=== PATIENT | female | born 1995 | race African-American/Black ===

== ENCOUNTER 2016-06-16 16:25 | Inpatient (IN) | payer MEDICAID, SELFPAY ==
[~2016-06-16] VITALS: Ht 170.2 cm; Wt 50.6 kg
[2016-06-16] MEDS ORDERED: SODIUM CHLORIDE 0.9% 1,000 ML IV ONE (16:50)
[2016-06-16] MEDS ORDERED: SODIUM CHLORIDE 0.9% 1,000ML IVBOLUS ONE (17:00)
[2016-06-16] MEDS ORDERED: ONDANSETRON 2MG/ML, 2ML IVPush ONE (17:00)
[2016-06-16] MEDS ORDERED: ACETAMINOPHEN 325 MG TABLET PO ONE (17:00)
[2016-06-16] MEDS ORDERED: ACETAMINOPHEN 325 MG TABLET ONE (17:03)
[2016-06-16] MEDS ORDERED: ONDANSETRON 2MG/ML, 2ML ONE (17:03)
[2016-06-16] MEDS ORDERED: MORPHINE SULFATE 4 MG/ML, 1ML ONE (17:03)
[2016-06-16] MEDS: MORPHINE SULFATE 4 MG/ML, 1ML IVPush PRN ×3 (17:32→22:12)
[2016-06-16 17:39] LABS: HEMOGLOBIN 8.6 g/dL (11.7-16.4)
[2016-06-16 17:46] LABS: ASPARTATE AMINO TRANSFERASE 40 U/L (15-37); BLOOD UREA NITROGEN 6 mg/dL (7-18)
[2016-06-16] MEDS ORDERED: NS + 40MEQ KCL 1,000 ML IV ONE ×2 (17:49→18:32)
[2016-06-16] MEDS ORDERED: MAGNESIUM SULFATE 1 GM in SODIUM CHLORIDE 0.9% 50 ML IV ONE (18:00)
[2016-06-16 18:09] LABS: RAPID INFLUENZA A Negative (Negative); RAPID INFLUENZA B Negative (Negative)
[2016-06-16 18:24] LABS: ANISOCYTOSIS 2+; HYPOCHROMIA 1+
[2016-06-16 18:25] LABS: MICROCYTOSIS 1+; TARGET CELLS 1+
[2016-06-16 18:26] LABS: POLYCHROMASIA 1+
[2016-06-16] MEDS ORDERED: SODIUM CHLORIDE FLUSH 10ML SYR IVF PRN (20:30)
[2016-06-16] MEDS ORDERED: BISACODYL 10 MG SUPP PR PRN (20:30)
[2016-06-16 21:08] LABS: SICKLE CELL SCREEN NEGATIVE (NEGATIVE)
[2016-06-16 22:24] VITALS: BP 137/69
[2016-06-17] VITALS (10 sets, daily range): BP systolic 135–162; BP diastolic 77–91
[2016-06-17] MEDS ORDERED: MAGNESIUM SULFATE PMX 2GM/50ML 50 ML IV ONE ×2 (00:30→17:30)
[2016-06-17] MEDS ORDERED: MAGNESIUM SULFATE 1 GM in SODIUM CHLORIDE 0.9% 50 ML IV ONE (01:00)
[2016-06-17] MEDS: NS + 40MEQ KCL 1,000 ML IV SCH ×3 (01:39→23:30)
[2016-06-17] MEDS: MORPHINE SULFATE 4 MG/ML, 1ML IVPush PRN ×3 (01:54→15:12)
[2016-06-17] MEDS: ACETAMINOPHEN 325 MG TABLET PO PRN ×3 (01:54→20:16)
[2016-06-17 06:54] LABS: ASPARTATE AMINO TRANSFERASE 37 U/L (15-37); BLOOD UREA NITROGEN 4 mg/dL (7-18)
[2016-06-17 07:18] LABS: DIFF TOTAL CELLS COUNTED 100 CELL DIFF; HEMOGLOBIN 7.3 g/dL (11.7-16.4)
[2016-06-17 07:19] LABS: ANISOCYTOSIS 2+; MICROCYTOSIS 2+; VERIFY COUNTS? YES
[2016-06-17 07:20] LABS: HYPOCHROMIA 2+; OVALOCYTES 1+
[2016-06-17 07:21] LABS: POLYCHROMASIA 1+
[2016-06-17] MEDS: ONDANSETRON 2MG/ML, 2ML IVP PRN (10:03)
[2016-06-17] MEDS: KETOROLAC 30 MG/1 ML IVPush SCH ×3 (11:12→20:16)
[2016-06-17] MEDS: ASCORBIC ACID 500 MG TABLET PO SCH (11:12)
[2016-06-17] MEDS: FERROUS SULFATE 325 MG TABLET PO SCH ×2 (11:13→17:06)
[2016-06-17] MEDS: METHOCARBAMOL 500 MG TABLET PO SCH ×3 (11:13→20:16)
[2016-06-17] MEDS: POTASSIUM CHLORIDE 20 MEQ TAB.ER.PRT PO SCH (17:06)
[2016-06-18 01:44] VITALS: BP 164/105
[2016-06-18] MEDS: MORPHINE SULFATE 4 MG/ML, 1ML IVPush PRN ×5 (01:55→22:43)
[2016-06-18 01:57] VITALS: BP 156/90
[2016-06-18 06:03] LABS: ASPARTATE AMINO TRANSFERASE 55 U/L (15-37); BLOOD UREA NITROGEN 4 mg/dL (7-18)
[2016-06-18 07:41] LABS: HEMOGLOBIN 9.8 g/dL (11.7-16.4)
[2016-06-18] MEDS: ASCORBIC ACID 500 MG TABLET PO SCH (07:51)
[2016-06-18] MEDS: KETOROLAC 30 MG/1 ML IVPush SCH ×2 (07:51→16:36)
[2016-06-18] MEDS: FERROUS SULFATE 325 MG TABLET PO SCH (07:52)
[2016-06-18] MEDS: METHOCARBAMOL 500 MG TABLET PO SCH ×4 (07:53→22:37)
[2016-06-18] MEDS: NS + 40MEQ KCL 1,000 ML IV SCH ×2 (07:53→18:05)
[2016-06-18] MEDS: POTASSIUM CHLORIDE 20 MEQ TAB.ER.PRT PO SCH ×2 (07:53→17:00)
[2016-06-18 08:22] VITALS: BP 143/68
[2016-06-18 08:25] LABS: ANISOCYTOSIS 3+
[2016-06-18 08:27] LABS: HYPOCHROMIA 2+; MICROCYTOSIS 1+; OVALOCYTES 1+; POIKILOCYTOSIS 2+; SCHISTOCYTES 1+
[2016-06-18] MEDS ORDERED: POTASSIUM PHOSPHATE 22 MEQ in SODIUM CHLORIDE 0.9% 500 ML IV ONE (10:30)
[2016-06-18] MEDS: ACETAMINOPHEN 325 MG TABLET PO PRN ×2 (10:37→16:36)
[2016-06-18] MEDS ORDERED: OMNIPAQUE 350 MG/ML, 100ML BOTTLE ONE (11:53)
[2016-06-18 13:02] VITALS: BP 158/84
[2016-06-18] MEDS: IRON SUCROSE COMPLEX 100MG/5ML IV SCH (13:14)
[2016-06-18] MEDS: ENOXAPARIN 40 MG/0.4 ML SQ SCH (13:15)
[2016-06-18] MEDS: ONDANSETRON 2MG/ML, 2ML IVP PRN ×2 (14:33→19:34)
[2016-06-18 14:48] LABS: HIV 1&2 ANTIBODY SCREEN Nonreactive (Nonreactive); HIV-1 p24 ANTIGEN Nonreactive (Nonreactive)
[2016-06-18 15:57] LABS: SPECIMEN SOURCE CSF (.); STREPTOCOCCUS PNEUMONIAE AG Negative (Negative)
[2016-06-18 19:11] VITALS: BP 173/88
[2016-06-19] MEDS ORDERED: DIPHENHYDRAMINE 50 MG/ML, 1ML IVPush ONE
[2016-06-19] MEDS ORDERED: LABETALOL 5MG/ML, 20ML IVPush ONE
[2016-06-19 01:57] VITALS: BP 160/76
[2016-06-19] MEDS: MORPHINE SULFATE 4 MG/ML, 1ML IVPush PRN ×3 (04:38→21:19)
[2016-06-19] MEDS: ACETAMINOPHEN 325 MG TABLET PO PRN ×2 (04:46→21:17)
[2016-06-19] MEDS: NS + 40MEQ KCL 1,000 ML IV SCH (05:19)
[2016-06-19 06:02] LABS: HEMOGLOBIN 9.8 g/dL (11.7-16.4)
[2016-06-19 06:14] LABS: BLOOD UREA NITROGEN 6 mg/dL (7-18)
[2016-06-19 06:19] LABS: ASPARTATE AMINO TRANSFERASE 36 U/L (15-37)
[2016-06-19 06:25] LABS: DIFF TOTAL CELLS COUNTED 100 CELL DIFF
[2016-06-19 06:27] LABS: ANISOCYTOSIS 3+; VERIFY COUNTS? YES
[2016-06-19 06:28] LABS: HYPOCHROMIA 2+; MICROCYTOSIS 1+; OVALOCYTES 1+; POIKILOCYTOSIS 2+; POLYCHROMASIA 1+; SCHISTOCYTES 1+; TARGET CELLS 1+
[2016-06-19 08:27] VITALS: BP 165/92
[2016-06-19] MEDS: METHOCARBAMOL 500 MG TABLET PO SCH ×4 (08:38→21:17)
[2016-06-19] MEDS: ASCORBIC ACID 500 MG TABLET PO SCH (08:39)
[2016-06-19] MEDS: IRON SUCROSE COMPLEX 100MG/5ML IV SCH (08:39)
[2016-06-19] MEDS: POTASSIUM CHLORIDE 20 MEQ TAB.ER.PRT PO SCH ×2 (08:39→16:30)
[2016-06-19] MEDS ORDERED: ENALAPRILAT 1.25 MG/ML, 2ML IV PRN (11:00)
[2016-06-19 11:22] LABS: OCCBLD OBC PASS
[2016-06-19] MEDS: ENOXAPARIN 40 MG/0.4 ML SQ SCH (11:59)
[2016-06-19 13:47] VITALS: BP 141/89
[2016-06-19 20:00] VITALS: BP 134/75
[2016-06-20 01:54] VITALS: BP 139/86
[2016-06-20] MEDS: MORPHINE SULFATE 4 MG/ML, 1ML IVPush PRN ×3 (01:54→23:21)
[2016-06-20] MEDS: ONDANSETRON 2MG/ML, 2ML IVP PRN (01:54)
[2016-06-20 05:37] LABS: BLOOD UREA NITROGEN 9 mg/dL (7-18)
[2016-06-20 05:42] LABS: ASPARTATE AMINO TRANSFERASE 46 U/L (15-37)
[2016-06-20] MEDS: METHOCARBAMOL 500 MG TABLET PO SCH ×4 (06:00→21:36)
[2016-06-20 06:05] LABS: HEMOGLOBIN 10.9 g/dL (11.7-16.4)
[2016-06-20 06:06] LABS: DIFF TOTAL CELLS COUNTED 100 CELL DIFF
[2016-06-20 06:12] LABS: ANISOCYTOSIS 3+; MICROCYTOSIS 2+; VERIFY COUNTS? YES
[2016-06-20 06:13] LABS: HYPOCHROMIA 2+; OVALOCYTES 1+; POLYCHROMASIA 1+
[2016-06-20 06:14] LABS: SCHISTOCYTES 1+; TARGET CELLS 1+
[2016-06-20 06:16] LABS: LARGE PLATELETS 1+
[2016-06-20 07:57] VITALS: BP 130/83
[2016-06-20] MEDS: ASCORBIC ACID 500 MG TABLET PO SCH (09:14)
[2016-06-20] MEDS: POTASSIUM CHLORIDE 20 MEQ TAB.ER.PRT PO SCH (09:14)
[2016-06-20] MEDS: IRON SUCROSE COMPLEX 100MG/5ML IV SCH (09:14)
[2016-06-20 10:32] LABS: HEPATITIS C VIRUS ANTIBODY Nonreactive (Nonreactive)
[2016-06-20 11:06] LABS: BETA STREP (GROUP B) AG Negative (Negative); HAEMOPHILUS INFLUENZAE B AG Negative (Negative); NEISSERIA MENINGITIDIS AG Negative (Negative)
[2016-06-20] MEDS: ENOXAPARIN 40 MG/0.4 ML SQ SCH (11:41)
[2016-06-20 12:47] VITALS: BP 129/78
[2016-06-20 18:39] VITALS: BP 120/68
[2016-06-21 02:00] VITALS: BP 130/78
[2016-06-21] MEDS: METHOCARBAMOL 500 MG TABLET PO SCH ×2 (05:17→11:26)
[2016-06-21 06:42] LABS: HEMOGLOBIN 11.7 g/dL (11.7-16.4)
[2016-06-21 06:54] LABS: DIFF TOTAL CELLS COUNTED 100 CELL DIFF
[2016-06-21 06:56] LABS: BLOOD UREA NITROGEN 13 mg/dL (7-18)
[2016-06-21 07:05] LABS: VERIFY COUNTS? YES
[2016-06-21 07:06] LABS: ANISOCYTOSIS 3+; HYPOCHROMIA 2+; MICROCYTOSIS 2+; OVALOCYTES 1+; POLYCHROMASIA 1+; SCHISTOCYTES 1+; TARGET CELLS 1+
[2016-06-21 07:07] LABS: LARGE PLATELETS 1+
[2016-06-21 07:44] VITALS: BP 132/74
[2016-06-21] MEDS: ENOXAPARIN 40 MG/0.4 ML SQ SCH (11:00)
[2016-06-21] MEDS: IRON SUCROSE COMPLEX 100MG/5ML IV SCH (11:25)
[2016-06-21] MEDS: ASCORBIC ACID 500 MG TABLET PO SCH (11:25)
[2016-06-21] MEDS ORDERED: METH10TA6 PO (11:28)
[2016-06-22 20:06] LABS: ADENOVIRUS PCR Negative (Negative); INFLUENZA A PCR Negative (Negative); INFLUENZA B PCR Negative (Negative); METAPNEUMOVIRUS PCR Negative (Negative); PARAINFLUENZA 1 PCR Negative (Negative); PARAINFLUENZA 2 PCR Negative (Negative); PARAINFLUENZA 3 PCR Negative (Negative); RESP SYNCYTIAL VIRUS A PCR Negative (Negative); RESP SYNCYTIAL VIRUS B PCR Negative (Negative); RHINOVIRUS PCR Negative (Negative)
[2016-06-23 09:07] LABS: THYROGLOBULIN AB 0.9 IU/mL (0.0-0.9)
== END 2016-06-21 12:45 | disposition home or self-care (01) | DRG 644 ==
LOC: ED 17:15 → EDIP 20:04 → 4EST 21:32 → 4WST 06-18 12:14
PROC: 009U3ZX Drainage of Spinal Canal, Percutaneous Approach, Diagnostic (ICD-10-PCS; principal; 2016-06-16)
PROC: 0T9B70Z Drainage of Bladder with Drainage Device, Via Natural or Artificial Opening (ICD-10-PCS; 2016-06-16)
DX: E05.90 Thyrotoxicosis, unspecified without thyrotoxic crisis or storm (principal); R65.10 Systemic inflammatory response syndrome (SIRS) of non-infectious origin without acute organ dysfunction; E44.0 Moderate protein-calorie malnutrition; Z68.1 Body mass index [BMI] 19.9 or less, adult; B25.9 Cytomegaloviral disease, unspecified; B34.9 Viral infection, unspecified; D50.9 Iron deficiency anemia, unspecified; E87.5 Hyperkalemia; M54.2 Cervicalgia; E87.6 Hypokalemia; Z82.49 Family history of ischemic heart disease and other diseases of the circulatory system; Z83.3 Family history of diabetes mellitus; I10 Essential (primary) hypertension; I27.2 Other secondary pulmonary hypertension; B97.6 Parvovirus as the cause of diseases classified elsewhere; B00.9 Herpesviral infection, unspecified; A53.9 Syphilis, unspecified; M32.9 Systemic lupus erythematosus, unspecified; R19.7 Diarrhea, unspecified; R00.0 Tachycardia, unspecified
CPT/HCPCS: 36415; 62270; 71010; 71275; 74020; 76536; 76700; 80048; 80053; 80074; 80076; 81003; 82040; 82272; 82550; 82728; 82945; 83010; 83520; 83540; 83550; 83605; 83615; 83735; 84100; 84145; 84157; 84439; 84443; 84703; 85025; 85045; 85651; 85660; 86038; 86140; 86308; 86376; 86592; 86645; 86663; 86664; 86665; 86703; 86747; 86800; 86850; 86900; 86923; 87040; 87046; 87070; 87205; 87252; 87328; 87329; 87400; 87497; 87529; 87532; 87633; 87798; 87802; 87899; 89051; 93005; 93306; 93308; 96361; 96365; 96366; 96368; 96375; J1650; J1756; J1885; J2405; J3475; Q9967; G0435; J1200; J3480; J7030; J7040; P9016

== ENCOUNTER → 2018-09-01 | Outpatient (CLI) | payer OTHER ==
[~2018-09-01] MED LIST: METH10TA6 PO
[2018-09-01 17:37] LABS: FREE T4 (FREE THYROXINE) 1.07 ng/dL (0.76-1.46)
== END | disposition home or self-care (01) ==
LOC: LAB 16:49
PROVIDERS: ATTEND Internal Medicine Endocrinology, Diabetes & Metabolism
DX: E89.0 Postprocedural hypothyroidism (principal)
CPT/HCPCS: 36415; 84439; 84443

== ENCOUNTER 2019-04-11 10:18 | Outpatient (CLI) | payer OTHER ==
[2019-04-11 10:34] LABS: BASOPHILS # (AUTO) 0.03 x10^3/uL (0-0.1); BASOPHILS % (AUTO) 1 % (0-1); EOSINOPHILS % (AUTO) 6 % (1-7); LYMPHOCYTES # (AUTO) 1.88 x10^3/uL (1-3.4); LYMPHOCYTES % (AUTO) 35 % (22-44); MD NO; MEAN CORPUSCULAR HEMOGLOBIN 27.7 pg (27.0-34.8); MEAN CORPUSCULAR HGB CONC 32.9 g/dL (32.4-35.8); MEAN CORPUSCULAR VOLUME 84.2 fL (80-100); MEAN PLATELET VOLUME 7.7 fL (7.4-10.4); MONOCYTES # (AUTO) 0.26 x10^3/uL (0.2-0.8); MONOCYTES % (AUTO) 5 % (2-9); NEUTROPHILS # (AUTO) 2.97 x10^3/uL (1.8-6.8); NEUTROPHILS % (AUTO) 55 % (42-75); PLATELET COUNT 324 x10^3/uL (130-400); RED BLOOD COUNT 4.89 x10^6/uL (3.82-5.3); RED CELL DISTRIBUTION WIDTH 13.9 % (9.6-15.2)
== END 2019-04-11 23:59 | disposition home or self-care (01) ==
LOC: LAB 10:18
PROVIDERS: ATTEND Family Medicine
DX: D64.9 Anemia, unspecified (principal); E89.0 Postprocedural hypothyroidism
CPT/HCPCS: 36415; 84443; 85025

== ENCOUNTER 2020-02-01 18:48 | Emergency (ER) | payer OTHER ==
[~2020-02-01] VITALS: Ht 170.2 cm; Wt 66.9 kg
[2020-02-01 19:07] VITALS: BP 137/83
[2020-02-01 19:30] LABS: BASOPHILS % (AUTO) 1 % (0-1); EOSINOPHILS % (AUTO) 4 % (1-7); LYMPHOCYTES % (AUTO) 35 % (22-44); MEAN CORPUSCULAR HEMOGLOBIN 27.4 pg (27.0-34.8); MEAN CORPUSCULAR HGB CONC 33.3 g/dL (32.4-35.8); MEAN PLATELET VOLUME 7.2 fL (7.4-10.4); MONOCYTES % (AUTO) 5 % (2-9); NEUTROPHILS % (AUTO) 56 % (42-75); PLATELET COUNT 302 x10^3/uL (130-400); RED BLOOD COUNT 4.85 x10^6/uL (3.82-5.3); RED CELL DISTRIBUTION WIDTH 13.8 % (9.6-15.2)
[2020-02-01 19:38] LABS: ANION GAP 7 mmol/L (5-15); CALCIUM 8.7 mg/dL (8.5-10.1); CHLORIDE 109 mmol/L (98-107)
[2020-02-01 19:43] LABS: MD NO
[2020-02-01 20:02] LABS: MICROSCOPIC NOT IND
--- NOTE | 2020-02-01 21:35 | NUR ---
FIRST CONTACT, ABRAHAM. PT ALREADY PROVIDED URINE, LABS WERE DRAWN ALREADY. CONNECTED TO CONT PULSE OX, UNDRESS. AWAITING ERP EVAL. CALL MAGALY AIDET PROVIDED.
[2020-02-01] MEDS ORDERED: ONDANSETRON ODT 4 MG ONE (23:06)
[2020-02-01] MEDS ORDERED: ONDANSETRON ODT 4 MG PO ONE (23:30)
== END 2020-02-02 01:16 | disposition home or self-care (01) ==
LOC: ED 23:54
DX: O21.0 Mild hyperemesis gravidarum (principal); E87.6 Hypokalemia; R10.2 Pelvic and perineal pain; Z3A.10 10 weeks gestation of pregnancy
CPT/HCPCS: 36415; 76801; 80048; 81003; 84702; 85025; 86901; 99284; Q0162

== ENCOUNTER → 2020-02-27 | Outpatient (CLI) | payer OTHER ==
[2020-02-27 09:54] LABS: BASOPHILS % (AUTO) 1 % (0-1); EOSINOPHILS % (AUTO) 3 % (1-7); LYMPHOCYTES % (AUTO) 31 % (22-44); MEAN CORPUSCULAR HEMOGLOBIN 27.5 pg (27.0-34.8); MEAN CORPUSCULAR HGB CONC 33.6 g/dL (32.4-35.8); MONOCYTES % (AUTO) 5 % (2-9); NEUTROPHILS % (AUTO) 62 % (42-75); PLATELET COUNT 267 x10^3/uL (130-400); RED BLOOD COUNT 4.68 x10^6/uL (3.82-5.3); RED CELL DISTRIBUTION WIDTH 14.1 % (9.6-15.2)
[2020-02-27 09:56] LABS: MD NO
[2020-02-27 10:15] LABS: FREE T4 (FREE THYROXINE) 1.27 ng/dL (0.76-1.46)
== END | disposition home or self-care (01) ==
LOC: LAB 09:34
PROVIDERS: ATTEND Obstetrics & Gynecology
DX: Z34.80 Encounter for supervision of other normal pregnancy, unspecified trimester (principal)
CPT/HCPCS: 36415; 84439; 84443; 85025; 86592; 86762; 86850; 86870; 86886; 86900; 86902; 87086; 87340; 87806; G0475

== ENCOUNTER 2020-02-29 07:36 | Emergency (ER) | payer OTHER ==
[~2020-02-29] VITALS: Ht 170.2 cm; Wt 67.2 kg
[2020-02-29] MEDS ORDERED: PREN1TAB28 PO (07:54)
[2020-02-29] MEDS ORDERED: CHOL10003 PO (07:54)
[2020-02-29] MEDS ORDERED: LEVO50TA PO (07:55)
[2020-02-29] MEDS ORDERED: MORPHINE SULFATE 4 MG/ML, 1ML IVPush PRN (08:00)
[2020-02-29] MEDS ORDERED: SODIUM CHLORIDE FLUSH 10ML SYR IVF ONE (08:00)
[2020-02-29] MEDS ORDERED: SODIUM CHLORIDE 0.9% 1,000ML IVBOLUS ONE (08:00)
[2020-02-29] MEDS ORDERED: ONDANSETRON 2MG/ML, 2ML IVPush ONE (08:00)
[2020-02-29] MEDS ORDERED: ONDANSETRON 2MG/ML, 2ML ONE (08:08)
[2020-02-29] MEDS ORDERED: MORPHINE SULFATE 4 MG/ML, 1ML ONE (08:08)
--- NOTE | 2020-02-29 08:18 | NUR ---
PIV STARTED AND BLOOD DRAWN, INCLUDING TYPE AND SCREEN IN THE PRESENCE OF LAB. IV BOLUS STARTED. PT MEDICATED PER JUN. PT TO ULTRASOUND AT THIS TIME.
[2020-02-29 08:29] LABS: BASOPHILS % (AUTO) 1 % (0-1); EOSINOPHILS % (AUTO) 2 % (1-7); LYMPHOCYTES % (AUTO) 26 % (22-44); MEAN CORPUSCULAR HEMOGLOBIN 27.8 pg (27.0-34.8); MEAN CORPUSCULAR HGB CONC 33.2 g/dL (32.4-35.8); MEAN PLATELET VOLUME 7.4 fL (7.4-10.4); MONOCYTES % (AUTO) 4 % (2-9); NEUTROPHILS % (AUTO) 67 % (42-75); PLATELET COUNT 274 x10^3/uL (130-400); RED BLOOD COUNT 4.76 x10^6/uL (3.82-5.3)
[2020-02-29 08:33] LABS: MD NO
[2020-02-29 08:37] LABS: ALBUMIN 4.2 g/dL (3.4-5.0); ANION GAP 8 mmol/L (5-15); CALCIUM 8.7 mg/dL (8.5-10.1); CHLORIDE 109 mmol/L (98-107)
[2020-02-29 08:55] LABS: ALANINE AMINOTRANSFERASE 17 U/L (12-78); ALKALINE PHOSPHATASE 28 U/L (45-117); BILIRUBIN,TOTAL 0.3 mg/dL (0.2-1.0); CREATININE 0.69 mg/dL (0.55-1.02); TOTAL PROTEIN 8.3 g/dL (6.4-8.2)
--- NOTE | 2020-02-29 09:27 | NUR ---
CONFIRMED WITH DR ROLLINS URINE CAN BE OBRAINED VIA CLEAN CATCH. THIS REPORTED TO PRIMARY RN, IZZY. URINE CUP PROVIDED, PT UP TO BR.
[2020-02-29 09:55] LABS: MICROSCOPIC NOT IND
--- NOTE | 2020-02-29 10:48 | NUR ---
CARE FOR DC ONLY PROVIDED. PT LAYING ON GURNEY, NO ACUTE DISTRESS NOTED. IV DC'D WITH TIP INTACT. PAIN DECREASED TO 4/10. REVIEWED DC INSTRUCTIONS WITH PT, UNDERSTANDING VERBALIZED. PT LEFT AMB, GAIT STEADY.
[2020-02-29 10:49] VITALS: BP 105/67
== END 2020-02-29 10:52 | disposition home or self-care (01) ==
LOC: ED 08:04
DX: O26.891 Other specified pregnancy related conditions, first trimester (principal); R10.31 Right lower quadrant pain; Z3A.10 10 weeks gestation of pregnancy
CPT/HCPCS: 36415; 76801; 80053; 81003; 84702; 85025; 86901; 96361; 96374; 96375; 99284; J2270; J2405; J7030

== ENCOUNTER → 2020-04-08 | Outpatient (CLI) | payer OTHER ==
[~2020-04-08] MED LIST changes: +CHOL10003 PO; +LEVO50TA PO; +PREN1TAB28 PO
== END | disposition home or self-care (01) ==
LOC: CFH 08:28
PROVIDERS: ATTEND Obstetrics & Gynecology
DX: N63.20 Unspecified lump in the left breast, unspecified quadrant (principal)
CPT/HCPCS: 76642

== ENCOUNTER 2020-04-12 14:46 | Outpatient (CLI) | payer OTHER ==
[2020-04-12 15:13] LABS: T4 (THYROXINE) 12.7 mcg/dL (4.8-13.9)
== END 2020-04-12 23:59 | disposition home or self-care (01) ==
LOC: LAB 14:46
PROVIDERS: ATTEND Family Medicine
DX: Z33.1 Pregnant state, incidental (principal); E89.0 Postprocedural hypothyroidism
CPT/HCPCS: 36415; 84436; 84443

== ENCOUNTER → 2020-05-01 | Outpatient (CLI) | payer OTHER | END | disposition home or self-care (01) | LOC: LAB 15:04 | PROVIDERS: ATTEND Family Medicine | DX: Z34.82 Encounter for supervision of other normal pregnancy, second trimester (principal); Z3A.19 19 weeks gestation of pregnancy | CPT/HCPCS: 36415; 82105 ==

== ENCOUNTER 2020-05-17 09:35 | Observation (INO) | payer OTHER ==
[~2020-05-17] VITALS: Ht 170.2 cm; Wt 73.6 kg
[2020-05-17 10:12] VITALS: BP 119/74
[2020-05-17 10:13] LABS: MICROSCOPIC NOT IND
[2020-05-17 10:19] LABS: AMPHETAMINE SCREEN, URINE Negative (Negative); BARBITURATE SCREEN, URINE Negative (Negative); BENZODIAZEPINE SCREEN, URINE Negative (Negative); CANNABINOID SCREEN, URINE Positive (Negative); METHADONE SCREEN, URINE Negative (Negative); OPIATE SCREEN, URINE Negative (Negative)
[2020-05-17 10:20] LABS: COCAINE SCREEN, URINE Negative (Negative)
[2020-05-17] MEDS ORDERED: INDOMETHACIN 50 MG CAPSULE PO ONE (12:00)
[2020-05-17] MEDS ORDERED: INDOMETHACIN 50 MG CAPSULE ONE (12:06)
== END 2020-05-17 13:48 | disposition home or self-care (01) ==
LOC: LDOP 09:35 → ORIP 12:12 → LDIP 12:18
PROVIDERS: ADMIT Obstetrics & Gynecology; ATTEND Obstetrics & Gynecology
DX: O62.9 Abnormality of forces of labor, unspecified (principal); Z20.822 Contact with and (suspected) exposure to COVID-19; O34.12 Maternal care for benign tumor of corpus uteri, second trimester; D25.9 Leiomyoma of uterus, unspecified; O99.282 Endocrine, nutritional and metabolic diseases complicating pregnancy, second trimester; E03.9 Hypothyroidism, unspecified; Z3A.22 22 weeks gestation of pregnancy; Z79.899 Other long term (current) drug therapy
CPT/HCPCS: 76817; 80307; 81003; 87086; 87635; 99211; G0378; G0463

== ENCOUNTER 2020-05-20 09:13 | Outpatient (CLI) | payer OTHER ==
[~2020-05-20] VITALS: Ht 170.2 cm; Wt 71.8 kg
[2020-05-20 09:51] LABS: MICROSCOPIC INDICATED
[2020-05-20 09:52] VITALS: BP 125/72
== END 2020-05-20 11:48 | disposition home or self-care (01) ==
LOC: LDOP 09:13
PROVIDERS: ATTEND Obstetrics & Gynecology
DX: O99.891 Other specified diseases and conditions complicating pregnancy (principal); N13.30 Unspecified hydronephrosis; O26.892 Other specified pregnancy related conditions, second trimester; R10.9 Unspecified abdominal pain; Z3A.22 22 weeks gestation of pregnancy
CPT/HCPCS: 76770; 81001; 87086; 99211; G0463

== ENCOUNTER → 2020-05-22 | Outpatient (CLI) | payer OTHER ==
[2020-05-22 11:08] LABS: FREE T4 (FREE THYROXINE) 1.07 ng/dL (0.76-1.46)
== END | disposition home or self-care (01) ==
LOC: LAB 10:33
PROVIDERS: ATTEND Internal Medicine Endocrinology, Diabetes & Metabolism
DX: E89.0 Postprocedural hypothyroidism (principal)
CPT/HCPCS: 36415; 84439; 84443

== ENCOUNTER 2020-06-15 16:16 | Outpatient (CLI) | payer OTHER ==
[~2020-06-15] VITALS: Ht 170.2 cm; Wt 72.7 kg
[2020-06-15 16:22] VITALS: BP 134/74
[2020-06-15] MEDS ORDERED: BETAMETHASONE 6 MG/ML, 5ML IM ONE ×2 (16:30)
== END 2020-06-15 16:55 | disposition home or self-care (01) ==
LOC: LDOP 16:16
PROVIDERS: ATTEND Obstetrics & Gynecology
DX: O99.282 Endocrine, nutritional and metabolic diseases complicating pregnancy, second trimester (principal); E89.0 Postprocedural hypothyroidism; Z3A.25 25 weeks gestation of pregnancy; Z79.899 Other long term (current) drug therapy
CPT/HCPCS: 96372; 99211; J0702; G0463

== ENCOUNTER → 2020-07-09 | Outpatient (CLI) | payer OTHER ==
[2020-07-09 15:33] LABS: FREE T4 (FREE THYROXINE) 0.97 ng/dL (0.76-1.46)
== END | disposition home or self-care (01) ==
LOC: LAB 14:54
PROVIDERS: ATTEND Internal Medicine Endocrinology, Diabetes & Metabolism
DX: E89.0 Postprocedural hypothyroidism (principal)
CPT/HCPCS: 36415; 84439; 84443

== ENCOUNTER 2020-08-30 10:04 | Inpatient (IN) | payer OTHER ==
[~2020-08-30] VITALS: Ht 170.2 cm; Wt 77.7 kg
[2020-08-30 10:35] LABS: BASOPHILS % (AUTO) 1 % (0-1); EOSINOPHILS % (AUTO) 2 % (1-7); LYMPHOCYTES % (AUTO) 25 % (22-44); MEAN CORPUSCULAR HEMOGLOBIN 28.5 pg (27.0-34.8); MEAN CORPUSCULAR HGB CONC 33.4 g/dL (32.4-35.8); MEAN PLATELET VOLUME 8.1 fL (7.4-10.4); MONOCYTES % (AUTO) 4 % (2-9); NEUTROPHILS % (AUTO) 68 % (42-75); PLATELET COUNT 244 x10^3/uL (130-400); RED BLOOD COUNT 4.63 x10^6/uL (3.82-5.3); RED CELL DISTRIBUTION WIDTH 15.1 % (9.6-15.2)
[2020-08-30 10:36] LABS: MD NO
[2020-08-30 10:43] LABS: ANION GAP 8 mmol/L (5-15); CALCIUM 8.4 mg/dL (8.5-10.1); CHLORIDE 110 mmol/L (98-107)
[2020-08-30 10:47] LABS: ALANINE AMINOTRANSFERASE 10 U/L (12-78); ALKALINE PHOSPHATASE 118 U/L (45-117); BILIRUBIN, DIRECT < 0.1 mg/dL (0.1-0.2); BILIRUBIN,TOTAL 0.2 mg/dL (0.2-1.0); CREATININE 0.58 mg/dL (0.55-1.02); TOTAL PROTEIN 6.6 g/dL (6.4-8.2)
[2020-08-30 11:05] LABS: MICROSCOPIC INDICATED
[2020-08-30 12:10] LABS: AMPHETAMINE SCREEN, URINE Negative (Negative); BARBITURATE SCREEN, URINE Negative (Negative); CANNABINOID SCREEN, URINE Positive (Negative); COCAINE SCREEN, URINE Negative (Negative); METHADONE SCREEN, URINE Negative (Negative); OPIATE SCREEN, URINE Negative (Negative)
[2020-08-30 12:19] LABS: BENZODIAZEPINE SCREEN, URINE Negative (Negative)
[2020-08-30 15:00] VITALS: BP 147/80
[2020-08-30] MEDS ORDERED: OXYTOCIN 30U/ 0.9% NaCL 500ML 500 ML IV ONE (15:00)
[2020-08-30] MEDS ORDERED: D5%-LACTATED RINGERS 1,000 ML IV SCH (15:00)
[2020-08-30] MEDS ORDERED: ONDANSETRON 2MG/ML, 2ML IVPush PRN (15:00)
[2020-08-30] MEDS ORDERED: OXYTOCIN 30U/ 0.9% NaCL 500ML 500 ML IV PRN (15:00)
[2020-08-30] MEDS ORDERED: TERBUTALINE 1 MG/ML, 1ML SQ PRN (15:00)
[2020-08-30] MEDS ORDERED: CALCIUM CARBONATE 500 MG TAB.CHEW PO PRN (15:00)
[2020-08-30] MEDS ORDERED: LACTATED RINGERS 1,000 ML IV SCH ×2 (15:00→17:00)
[2020-08-30] MEDS ORDERED: TERBUTALINE 1 MG/ML, 1ML IVPush PRN (15:00)
[2020-08-30] MEDS ORDERED: PLEASE ENTER HEIGHT AND WEIGHT MC SCH ×2 (15:00→16:30)
[2020-08-30] MEDS ORDERED: PENICILLIN GK 5,000,000 UNITS in DEXTROSE 5% 100 ML IVPB ONE (15:00)
[2020-08-30] MEDS ORDERED: FENTANYL PF 100 MCG/2ML IV PRN (15:00)
[2020-08-30] MEDS ORDERED: NEWBORN KIT ONE (15:37)
[2020-08-30] MEDS ORDERED: MISOPROSTOL 200 MCG TABLET ONE (15:37)
[2020-08-30] MEDS ORDERED: LIDOCAINE 1%, 20ML ONE (15:37)
[2020-08-30] MEDS ORDERED: FENTANYL/BUPIV./NS/PF 250 ML EPIDCONT SCH (17:00)
[2020-08-30] MEDS ORDERED: EPHEDRINE 50 MG/ML, 1ML IVPush PRN (17:00)
[2020-08-30] MEDS ORDERED: NALOXONE 0.4 MG/ML, 1ML IVPush PRN (17:00)
[2020-08-30] MEDS ORDERED: LACTATED RINGERS 1,000 ML IVBOLUS PRN (17:30)
[2020-08-30] MEDS ORDERED: PENICILLIN GK 2,500,000 UNITS in DEXTROSE 5% 100 ML IVPB SCH (19:00)
[2020-08-30] MEDS: FENTANYL PF 100 MCG/2ML IVPush PRN ×2 (21:20→22:20)
[2020-08-30] MEDS ORDERED: BUPIVACAINE 0.25% ONE (22:22)
[2020-08-31] MEDS: OXYTOCIN 30U/ 0.9% NaCL 500ML 500 ML IV SCH ×2 (00:30→10:30)
[2020-08-31] MEDS ORDERED: DOCUSATE 100 MG CAPSULE PO PRN (00:30)
[2020-08-31] MEDS ORDERED: DIPH,PERTUSS(ACELL),TET VAC/PF NC IM-VACC PRN (00:30)
[2020-08-31] MEDS ORDERED: ACETAMINOPHEN 325 MG TABLET PO PRN ×2 (00:30)
[2020-08-31] MEDS ORDERED: SIMETHICONE 80 MG CHEW TAB PO PRN (00:30)
[2020-08-31] MEDS ORDERED: OXYcodone/APAP 5/325MG TABLET PO PRN (00:30)
[2020-08-31] MEDS ORDERED: CARBOPROST TROMETHAMINE 250 MCG/ML, 1ML IM PRN (00:30)
[2020-08-31] MEDS ORDERED: MISOPROSTOL 200 MCG TABLET PR PRN (00:30)
[2020-08-31 02:45] VITALS: BP 132/80
[2020-08-31] MEDS: IBUPROFEN 600 MG TABLET PO PRN ×3 (03:42→20:52)
[2020-08-31] MEDS: OXYcodone/APAP 5/325MG TABLET PO PRN ×2 (05:01→20:52)
[2020-08-31 07:53] VITALS: BP 153/87
[2020-08-31] MEDS: PRENATAL VIT/IRON/FA 1 EACH TABLET PO SCH (09:00)
[2020-08-31 09:23] LABS: BASOPHILS % (AUTO) 1 % (0-1); EOSINOPHILS % (AUTO) 1 % (1-7); LYMPHOCYTES % (AUTO) 24 % (22-44); MEAN CORPUSCULAR HEMOGLOBIN 28.2 pg (27.0-34.8); MEAN CORPUSCULAR HGB CONC 33.6 g/dL (32.4-35.8); MEAN PLATELET VOLUME 8.1 fL (7.4-10.4); MONOCYTES % (AUTO) 5 % (2-9); NEUTROPHILS % (AUTO) 70 % (42-75); PLATELET COUNT 237 x10^3/uL (130-400); RED BLOOD COUNT 4.73 x10^6/uL (3.82-5.3); RED CELL DISTRIBUTION WIDTH 14.6 % (9.6-15.2)
[2020-08-31 09:26] LABS: MD NO
[2020-08-31 13:30] VITALS: BP 151/87
[2020-08-31 21:00] VITALS: BP 132/87
[2020-09-01 09:00] VITALS: BP 152/93
[2020-09-01] MEDS: PRENATAL VIT/IRON/FA 1 EACH TABLET PO SCH (10:05)
[2020-09-01 13:35] VITALS: BP 125/70
[2020-09-01] MEDS ORDERED: IBUP-1222 PO (13:41)
[2020-09-01] MEDS: IBUPROFEN 600 MG TABLET PO PRN (14:30)
== END 2020-09-01 15:11 | disposition home or self-care (01) | DRG 807 ==
LOC: LDOP 10:04 → LDIP 14:10 → 2NW 08-31 02:10
PROVIDERS: ADMIT Obstetrics & Gynecology; ATTEND Obstetrics & Gynecology
PROC: 10E0XZZ Delivery of Products of Conception, External Approach (ICD-10-PCS; principal; 2020-08-30)
PROC: 0HQ9XZZ Repair Perineum Skin, External Approach (ICD-10-PCS; 2020-08-30)
DX: O13.4 Gestational [pregnancy-induced] hypertension without significant proteinuria, complicating childbirth (principal); Z37.0 Single live birth; O99.284 Endocrine, nutritional and metabolic diseases complicating childbirth; O70.0 First degree perineal laceration during delivery; E03.9 Hypothyroidism, unspecified; Z3A.37 37 weeks gestation of pregnancy; Z20.822 Contact with and (suspected) exposure to COVID-19
CPT/HCPCS: 36415; 80053; 80307; 81001; 82248; 82570; 84156; 84550; 85025; 86592; 86850; 86870; 86900; 86902; 86922; 86923; 87635; G0378; J2405; J2540; J3010; J2590; J7120

== ENCOUNTER → 2020-11-15 | Outpatient (CLI) | payer OTHER ==
[~2020-11-15] MED LIST changes: +IBUP-1222 PO
== END | disposition home or self-care (01) ==
LOC: LAB 15:50
PROVIDERS: ATTEND Obstetrics & Gynecology
DX: Z30.430 Encounter for insertion of intrauterine contraceptive device (principal)
CPT/HCPCS: 36415; 84702

== ENCOUNTER → 2020-11-18 | Outpatient (CLI) | payer OTHER ==
[2020-11-18 14:57] LABS: FREE T4 (FREE THYROXINE) 1.11 ng/dL (0.76-1.46)
== END | disposition home or self-care (01) ==
LOC: LAB 14:26
PROVIDERS: ATTEND Obstetrics & Gynecology
DX: E03.9 Hypothyroidism, unspecified (principal)
CPT/HCPCS: 36415; 84439; 84443; 84481